=== PATIENT | female | born 1980 | race Caucasian/White ===

== ENCOUNTER 2017-12-18 16:44 | Inpatient (IN) | payer OTHER ==
--- OUTSIDE RECORDS SUMMARY | 2017-12-18 17:05 | XMS REPORT ---
:1980 External Reference #:[id number] Author Organization [facility] [employer] Address [address] [address] Phone [phone] Care Team Providers Name Role Phone Irma Arredondo MD Primary Care Physician Unavailable Payers Type Date Identification Numbers Payment Provider Subscriber Commercial Effective: Policy Number: [id number] [employer] Suzanna Moser 2011 PayID: [id number] [address] [place] [address] Medigap Part B Expires: Policy Number: [employer] Insurance Suzanna Moser 2011 [id number] PayID: [id number] [address] [place] [address] Problems Date Description Provider Status Onset: 12/06/2011 Contact dermatitis Delfina Lua M.D. Active Onset: 12/12/2016 Ileostomy present Irma Arredondo M.D. Active Onset: 12/12/2016 Crohn's disease Irma Arredondo M.D. Active Onset: 12/12/2016 Human papilloma virus infection Irma Arredondo M.D. 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 affected area for 1 week then prn Imitrex 09/02/ Active Tablets 100mg 7tabs 1 tab at G43.901 Irma 2014 onset of aquino Arredondo, and december.D. repeat in 2 hr. max 200mg per 24hr Remicade 03/19/ Active Solution 100mg infusion Ligia, 2012 Rec every 8-10 MD Pritesh weeks Qnasl / Active Aerosol 80mcg/Act 8.700 2 Unknown 0000 gm inhalations in each nostril once daily prn Ventolin HFA / Active Aerosol 108(90Base 1unit 2 puffs po Unknown 0000 ) mcg/Act s qid prn Olopatadine / Active Solution 0.6% instill 1 Unknown HCL 0000 spray into each nostril every evening prn Zyrtec Allergy / Active Tablets 10mg 1 by mouth Unknown 0000 every day as needed for allergies Apri / Active Tablets 0.15-30mg- 28tab 1 by mouth Irma 0000 mcg s every day Beni Arredondo Multi Vitamin 00/ Active Tablets 1 by mouth Unknown Daily 0000 every day Zinc / Active Tablets 50mg 0nce daily Unknown 0000 Vitamin C / Active Capsules 1 by mouth Unknown 0000 every day Azithromycin 01/18/ Hx Tablets 250mg 6tabs 2 tab by Delfina 2016 - mouth day 1 Stoney 12/12/ then 1 tab M.D. 2016 by mouth day 2-5 Keflex 10/26/ Hx Capsules 250mg 30cap 1 tab by Delfina 2016 - s mouth every Stoney, 11/21/ 8 hours M.D. 2015 Clotrimazole/B 07/31/ Hx Cream 1-0.05% 30gm apply twice 691.8 Delfina etamethasone 2011 - daily as Stoney Dipropionate 12/12/ needed M.D. 2016 Gentamicin 08/23/ Hx Ointment 0.1% 1tube /14 in to 692.9 Delfina Sulfate 2011 - each eye 4x Stoney 07/31/ per day 7 M.D. 2011 days Erythromycin 04/12/ Hx Ointment 5mg/GM 1tube apply to lt 373.00 Delfina 2011 - eye 08/15 in Lua, 07/31/ 3x per day M.D. 2011 7-10 days Cipro 04/12/ Hx Tablets 250mg 20tab one by nura 373.00 Delfina 2010 - s twice daily Lua, for 10 days M.D. 2010 Remicade / Hx Solution 300mg q 8 weeks Unknown 0000 - Rec 2015 Cephalexin / Hx Capsules 250mg 30cap take 1 692.9 Unknown 0000 - s capsule by 07/31/ mouth three 2012 times a day for 10 days Hydroxyzine / Hx Tablets 25mg Unknown HCL 0000 - 2016 Immunizations CPT Code Status Date Vaccine Reaction Lot # [id number] Given 12/16/2017 Pneumonia Vaccine [id number] Given 12/12/2016 Tdap - Tetanus/Diptheria/Acellular [id number] Pertussis Q2037 Given 08/09/2015 Fluvirin Im 3Yrs And Older Q2037 Given 05/03/2014 Fluvirin Im 3Yrs And Older [facility] Q2037 Given 08/27/2013 Fluvirin Im 3Yrs And Older [id number] Given 04/24/2011 Influenza Virus 3Yrs & Over [id number] Vital Signs Date Vital Result Comment 12/16/2017 Height 61.4 inches 5'1.40" Weight 134.00 lb Heart Rate 67 /min BP Systolic Sitting 138 mmHg BP Diastolic Sitting 80 mmHg O2 % BldC Oximetry 98 % BMI (Body Mass Index) 25.0 kg/m2 12/12/2016 Height 61 inches 5'1" Weight 133.00 lb Heart Rate 92 /min BP Systolic Sitting 126 mmHg BP Diastolic Sitting 80 mmHg Respiratory Rate 15 /min Body Temperature 98.0 F O2 % BldC Oximetry 98 % BMI (Body Mass Index) 25.1 kg/m2 01/03/2016 Weight 130.00 lb Heart Rate 95 /min BP Systolic Sitting 108 mmHg BP Diastolic Sitting 70 mmHg Body Temperature 98.3 F O2 % BldC Oximetry 99 % 11/22/2015 Height 61 inches 5'1" Weight 131.00 lb Heart Rate 102 /min BP Systolic Sitting 144 mmHg BP Diastolic Sitting 83 mmHg Body Temperature 98.5 F BMI (Body Mass Index) 24.7 kg/m2 09/02/2014 Height 61 inches 5'1" Weight 131.00 lb Heart Rate 95 /min BP Systolic Sitting 138 mmHg BP Diastolic Sitting 64 mmHg O2 % BldC Oximetry 97 % BMI (Body Mass Index) 24.7 kg/m2 08/27/2013 Height 61 inches 5'1" Weight 124.00 lb Heart Rate 73 /min BP Systolic Sitting 116 mmHg BP Diastolic Sitting 68 mmHg O2 % BldC Oximetry 99 % BMI (Body Mass Index) 23.4 kg/m2 07/31/2012 Height 62 inches 5'2" Weight 124.00 lb Heart Rate 78 /min BP Systolic Sitting 124 mmHg BP Diastolic Sitting 80 mmHg BMI (Body Mass Index) 22.7 kg/m2 08/23/2011 Height 62 inches 5'2" Weight 124.00 lb Heart Rate 80 /min BP Systolic Sitting 140 mmHg l BP Diastolic Sitting 82 mmHg l BMI (Body Mass Index) 22.7 kg/m2 04/24/2011 Weight 125.00 lb Heart Rate 72 /min BP Systolic Sitting 118 mmHg BP Diastolic Sitting 80 mmHg 04/12/2011 Height 61 inches 5'1" Weight 127.00 lb Heart Rate 74 /min BP Systolic Sitting 110 mmHg BP Diastolic Sitting 74 mmHg BMI (Body Mass Index) 24.0 kg/m2 Results Test Date Test Result H/L Range Note Laboratory test finding 12/16/2017 Cytology <pending> Lipid Profile 12/10/2017 Triglycerides 129 mg/dL 1 (Trig/Chol/HDL) Cholesterol 171 mg/dL 2 HDL Cholesterol 73.2 mg/dL 3 LDL Cholesterol 72 mg/dL 4 Laboratory test finding 12/10/2017 Glucose 80 mg/dL 70-100 5 Laboratory test finding 12/12/2016 Cytology SEE RESULT BELOW 6 HPV Rna Ww/Reflex Genotype Negative Negative 7 Lipid Profile (Trig/Chol/HDL) 11/30/2016 Triglycerides 130 mg/dL 8 Cholesterol 156 mg/dL 9 HDL Cholesterol 72.9 mg/dL 10 LDL Cholesterol 57 mg/dL 11 CBC Auto Diff 11/30/2016 White Blood Count 9.1 10^3/uL 3.5-10.8 Red Blood Count 4.62 10^6/uL 4.0-5.4 Hemoglobin 13.7 g/dL 12.0-16.0 Hematocrit 41 % 35-47 Mean Corpuscular Volume 88 fL 80-97 Mean Corpuscular Hemoglobin 30 pg 27-31 Mean Corpuscular HGB Conc 34 g/dL 31-36 Red Cell Distribution Width 13 % 10.5-15 Platelet Count 346 10^3/uL 150-450 Mean Platelet Volume 8 um3 7.4-10.4 Abs Neutrophils 4.6 10^3/uL 1.5-7.7 Abs Lymphocytes 3.4 10^3/uL 1.0-4.8 Abs Monocytes 0.9 10^3/uL High 0-0.8 Abs Eosinophils 0.1 10^3/uL 0-0.6 Abs Basophils 0 10^3/uL 0-0.2 Abs Nucleated RBC 0.01 10^3/uL Granulocyte % 51.0 % 38-83 Lymphocyte % 37.0 % 25-47 Monocyte % 10.3 % High 1-9 Eosinophil % 1.4 % 0-6 Basophil % 0.3 % 0-2 Nucleated Red Blood Cells % 0.1 Comp Metabolic Panel 11/30/2016 Sodium 135 mmol/L 133-145 Potassium 4.2 mmol/L 3.5-5.0 Chloride 102 mmol/L 101-111 Co2 Carbon Dioxide 27 mmol/L 22-32 Anion Gap 6 mmol/L 2-11 Glucose 79 mg/dL 70-100 Blood Urea Nitrogen 11 mg/dL 6-24 Creatinine 0.78 mg/dL 0.51-0.95 BUN/Creatinine Ratio 14.1 8-20 Calcium 9.4 mg/dL 8.6-10.3 Total Protein 7.3 g/dL 6.4-8.9 Albumin 4.0 g/dL 3.2-5.2 Globulin 3.3 g/dL 2-4 Albumin/Globulin Ratio 1.2 1-3 Total Bilirubin 0.30 mg/dL 0.2-1.0 Alkaline Phosphatase 63 U/L 34-104 Alt 8 U/L 7-52 Ast 15 U/L 13-39 Egfr Non- 82.7 >60 Egfr 106.3 >60 12 Laboratory test finding 01/03/2016 Culture Throat SEE RESULT BELOW 13 Laboratory test finding 01/03/2016 Rapid Group A Strep neg Lipid Profile (Trig/Chol/HDL) 11/15/2015 Triglycerides 115 mg/dL 14 Cholesterol 174 mg/dL 15 HDL Cholesterol 78.4 mg/dL 16 LDL Cholesterol 73 mg/dL 17 Laboratory test 11/15/2015 Glucose 69 mg/dL Low 70-100 finding Laboratory test 09/02/2014 Cytology RUN DATE: 18 finding 09/03/ <SEE NOTE> Laboratory test 09/02/2014 Human Papilloma Virus Positive Negative 19 finding Rna Lipid Profile 08/24/2014 Triglycerides 99 mg/dL 20, 21 (Trig/Chol/HDL) Cholesterol 175 mg/dL 20, 22 HDL Cholesterol 75.5 mg/dL 20, 23 LDL Cholesterol 80 mg/dL 20, 24 Laboratory test 08/24/2014 Glucose 82 mg/dL 70-100 20, 25 finding Surgical Pathology 02/18/2014 S RUN DATE: 26 02/19/ <SEE NOTE> Laboratory test 08/27/2013 Cytology RUN DATE: 27 finding 08/28/ <SEE NOTE> Laboratory test 08/27/2013 Affirm Vaginal Dna (SEE NOTE) 28 finding Probe Lipid Profile 08/20/2013 Triglycerides 109 mg/dL 40-200 (Trig/Chol/HDL) Cholesterol 187 mg/dL Less than 200 HDL Cholesterol 99 mg/dL High 40-60 29 Cholesterol/HDL Ratio 1.9 Average 1-4.44 LDL Cholesterol 66.2 Less Than 100 30 Laboratory test finding 08/20/2013 Glucose 74 mg/dL 70-100 31 Laboratory test finding 07/31/2012 Cytology RUN DATE: <SEE NOTE> Laboratory test finding 07/02/2012 Glucose 77 mg/dL 70-100 33 Lipid Profile 07/02/2012 Triglycerides 88 mg/dL 40-200 (Trig/Chol/HDL) Cholesterol 188 mg/dL Less than 200 HDL Cholesterol 85 mg/dL High 40-60 34 Cholesterol/HDL Ratio 2.2 AVERAGE 1-4.44 LDL Cholesterol 85.4 mg/dL Less Than 100 35 Surgical Pathology 06/28/2011 Surgical Pathology <SEE 36 NOTE> Laboratory test 04/24/2011 Cytology <SEE 37 finding NOTE> Chlamydia Trachomatis Rna N 38 GC (N. Gonorrhoeae) Rna N 39 Bacterial Vaginosis Smear Bacterial Vagino <SEE NOTE> 40 Lipid Profile (Trig/Chol/HDL) 04/02/2011 Triglyceride 105 mg/dL 40-200 Cholesterol 177 mg/dL Less Than 200 41 High Density Lipoprotein 67 mg/dL High 40-60 42 Cholesterol/HDL Ratio 2.64 AVERAGE 1-4.44 Low Density Lipoprotein 89 mg/dL Less Than 100 43 Laboratory test finding 04/02/2011 Glucose 76 mg/dL 70-100 1 Desirable: <150 Borderline High: 150-199 High: 200-499 Very High: >500 2 Desirable: <200 Borderline High: 200-239 High: >239 3 Low: <40 Desirable: 40-60 High: >60 4 Desirable: <100 Near Optimal: 100-129 Borderline High: 130-159 High: 160-189 Very High: >189 5 FASTING 10 HOUR 6 SEE RESULT BELOW Name: SUZANNA MOSER : [address]: Irma Arredondo MD Acct: [id number] Unit: [id number] AGE: 36 Location: [facility] Re12/12/16 SEX: F Status: REG REF SPEC: [id number] MO: 12/12/16-[address]: Irma Arredondo MD REQ: [id number] RECD: 12/12/16 STATUS: SOUT _ ORDERED: TP IMAGE ANAL, HPV/Thin Prep, HPV 16/18 GENE COMMENTS: [id number] FINAL DIAGNOSIS Negative for Intraepithelial lesion or Malignancy Reactive cellular changes associated with Inflammation (includes typical repair) A. Ectocervical/Endocervical Specimen Adequacy: Satisfactory of evaluation Transformation zone component identified Patient Information: HPV: High risk HPV RNA testing regardless of pap results. Actual Specimen Date: 12/12/16 Last Menstrual Date: 11/21/16 Previous Abnormal Pap Smears?:N If Yes, enter Diagnosis: HPV+ Date Time Test Result Flag (u) Normal Range 12/12/16 1513 HPV RNA RFLX GE Negative Negative The high-risk HPV types detected by the assay include: 16, 18, 31, 33, 35, 39, 45, 51, 52, 56, 58, 59, 66, and 68. Signed (signature on file) Michaela Seymour MD 12/26 1923 This Pap test was evaluated with the assistance of the [employer] Test Imaging System. Due to cytologic findings at the customer logistics manager microscope, comprehensive manual rescreening by a Video Production Specialist may be required. The Pap Smear is a screening test designed to aid in the detection of premalignant and malignant conditions of the uterine cervix. It is not a diagnostic procedure and should not be used as the sole means of detecting cervical cancer. Both false- positive and false- negative reports do occur. Depending on your risk status, a Pap smear should be obtained and evaluated every 1-3 years. END OF REPORT * ML=Testing performed at Main Lab DEPARTMENT OF PATHOLOGY, [address] [place] [address] Zeke [place] M.D. Director [facility] # [id number] The high-risk HPV types detected by the assay include: 16, 18, 31, 33, 35, 39, 45, 51, 52, 56, 58, 59, 66, and 68. 8 Desirable <150 Borderline high 150-199 High 200-499 Very High >500 9 Desirable <200 Borderline high 200-239 High >239 10 Low <40 Desirable: 40-60 High: >60 11 Desirable: <100 mg/dL Near Optimal: 100-129 mg/dL Borderline High: 130-159 mg/dL High: 160-189 mg/dL Very High: >189 mg/dL 12 Because ethnic data is not always readily available, this report includes an eGFR for both -Americans and non- Americans. The National Kidney Disease Education Program (NKDEP) does not endorse the use of the MDRD equation for patients that are not between the ages of 18 and 70, are , have extremes of body size, muscle mass, or nutritional status, or are non- or non-. According to the National Kidney Foundation, irrespective of diagnosis, the stage of the disease is based on the level of kidney function: Stage Description GFR(mL/min/1.73 m(2)) 1 Kidney damage with normal or decreased GFR 90 2 Kidney damage with mild decrease in GFR 60-89 3 Moderate decrease in GFR 30-59 4 Severe decrease in GFR 15-29 5 Kidney failure <15 (or dialysis) 13 SEE RESULT BELOW Name: SUZANNA MOSER : [address]: Delfina Lua MD Acct: [id number] Unit: [id number] AGE: 35 Location: [facility] Re01/03/16 SEX: F Status: REG REF SPEC: [id number] MO: 01/03/16-[address]: Delfina Lua MD REQ: [id number] RECD: 01/03/16 STATUS: COMP _ SOURCE: THROAT SPDESC: ORDERED: Throat Culture COMMENTS: [id number] Procedure Result Reported Site Throat Culture Final 01/05/16- 1250 ML Organism 1 NORMAL BLAKE Quantity 3+ Throat cultures are clinically indicated to detect the presence of group A strep, arcanobacterium and yeast. In certain cases, predominating organisms will be reported. * ML - MAIN LAB ([facility]) . END OF REPORT * ML=Testing performed at Main Lab DEPARTMENT OF PATHOLOGY, [address] [place] [address] Zeke [place] M.D. Director [facility] # [id number] Desirable <150 Borderline high 150-199 High 200-499 Very High >500 15 Desirable <200 Borderline high 200-239 High >239 16 Low <40 Desirable: 40-60 High: >60 17 Desirable: <100 mg/dL Near Optimal: 100-129 mg/dL Borderline High: 130-159 mg/dL High: 160-189 mg/dL Very High: >189 mg/dL 18 RUN DATE: 09/03/14 [facility] LAB LIVE PAGE 1 RUN TIME: [address] [place] [address] Specimen Inquiry Name: SUZANNA MOSER : [address]: Delfina Lua MD Acct: [id number] Unit: [id number] AGE: 34 Location: [facility] Re09/02/14 SEX: F Status: REG REF SPEC: [id number] MO: 09/02/14-0938 [facility] DR: Delfina Lua MD REQ: [id number] RECD: 09/02/14 STATUS: SOUT _ ORDERED: IMAGE ANALYSIS, HPV/Thin Prep FINAL DIAGNOSIS Negative for Intraepithelial lesion or Malignancy A. Ectocervical/Endocervical Specimen Adequacy: Satisfactory of evaluation Transformation zone component identified Patient Information: HPV: High risk HPV RNA testing regardless of pap results. Actual Specimen Date: 09/02/14 Other Pertinent History: No History Given Date Time Test Result Flag (u) Normal Range 09/02/14 0938 HPV RNA Positive H Negative The high-risk HPV types detected by the assay include: 16, 18, 31, 33, 35, 39, 45, 51, 52, 56, 58, 59, 66, and 68. Signed (signature on file) JOSE A Hawkins(ASCP) 6124 This Pap test was evaluated with the assistance of the ThinPrep Test Imaging System. Due to cytologic findings at the customer logistics manager microscope, comprehensive manual rescreening by a Video Production Specialist may be required. The Pap Smear is a screening test designed to aid in the detection of premalignant and malignant conditions of the uterine cervix. It is not a diagnostic procedure and should not be used as the sole means of detecting cervical cancer. Both false- positive and false- negative reports do occur. Depending on your risk status, a Pap smear should be obtained and evaluated every 1-3 years. END OF REPORT * ML=Testing performed at Main Lab DEPARTMENT OF PATHOLOGY, [facility] [address] [place], [place] [address] Zeke Montgomery M.D. Director [facility] # [id number] 19 The high-risk HPV types detected by the assay include: 16, 18, 31, 33, 35, 39, 45, 51, 52, 56, 58, 59, 66, and 68. 20 FASTING 12 HOUR 21 Desirable <150 Borderline high 150-199 High 200-499 Very High >500 22 Desirable <200 Borderline high 200-239 High >239 23 Low <40 Desirable: 40-60 High: >60 24 Desirable <100 Near Optimal 100-129 Borderline high 130-159 High 160-189 Very High >189 25 FASTING 12 HOUR 26 RUN DATE: 02/19/14 [facility] LAB LIVE PAGE 1 RUN TIME: 4309 [facility] [place], [place] [address] Specimen Inquiry Name: SUZANNA MOSER : [address]: Pritesh Strong MD Acct: [id number] Unit: [id number] AGE: 34 Location: ENDO Re02/18/14 SEX: F Status: REG REF SPEC: [id number] MO: 02/18/14-[address]: Pritesh Strong MD REQ: [id number] RECD: 02/18/14 STATUS: KASHIF MORA DR: Delfina Lua MD _ ORDERED: LEVEL IV/2 FINAL DIAGNOSIS 1. Colon, at 20 cm., biopsies: A. Chronic focally active colitis. B. No evidence of dysplasia. 2. Colon, at 10 cm., biopsies: A. Chronic focally active colitis. B. No evidence of dysplasia. COMMENTS: Histologic sections from both specimens show colonic mucosa with mild crypt architecture distortion and an increase in lamina propria infiltrate cellularity. Focally acute cryptitis is present. No granulomata are seen. There is no evidence of dysplasia. The findings are compatible with an inflammatory bowel disease such as Crohn's disease or ulcerative colitis. Clinicopathologic correlation is recommended. CLINICAL HISTORY Screening colonoscopy - Crohn's disease, last flex sigmoidoscopy 2010 POST-OPERATIVE DIAGNOSIS Screening colonoscopy to 20 cm. - biopsy at 10 cm. and 20 cm. CONTINUED ON NEXT PAGE * ML=Testing performed at Main Lab DEPARTMENT OF PATHOLOGY, [facility] [address] [place], [place] [address] Zeke [place] M.D. Director [facility] # [id number] RUN DATE: 02/19/14 [facility] LAB LIVE PAGE 2 RUN TIME: [address] [place] [address] Specimen Inquiry Patient: SUZANNA MOSER [id number] (Continued) GROSS DESCRIPTION (Continued) GROSS DESCRIPTION 1. The specimen is received in formalin labeled Suzanna NinaSteffi Ehsan, Colon Biopsies at 20 cm. and consists of a 0.6 x 0.5 x 0.2 cm. aggregate of multiple carpenter irregular soft tissue fragments. Submitted entirely, one cassette. 2. The specimen is received in formalin labeled Suzanna MaicoSteffi Ehsan, Colon Biopsies at 10 cm. and consists of a 0.7 x 0.6 x 0.2 cm. aggregate of multiple carpenter-pink irregular soft tissue fragments. Submitted entirely, one cassette. Signed (signature on file) Michaela Seymour MD 06/25 1447 END OF REPORT * ML=Testing performed at Main Lab DEPARTMENT OF PATHOLOGY, [address] [place] [address] Zeke [place] M.D. Director [facility] # [id number] 27 RUN DATE: 08/28/13 [facility] LAB LIVE PAGE 1 RUN TIME: 12[address] [place], [place] [address] Specimen Inquiry Name: SUZANNA MOSER : [address]: Delfina Lua MD Acct: [id number] Unit: [id number] AGE: 33 Location: [facility] Re08/27/13 SEX: F Status: REG REF SPEC: [id number] MO: 08/27/13-1434 [facility] DR: Delfina Lua MD REQ: [id number] RECD: 08/27/13 STATUS: SOUT _ ORDERED: IMAGE ANALYSIS FINAL DIAGNOSIS Negative for Intraepithelial lesion or Malignancy A. Ectocervical/Endocervical Specimen Adequacy: Satisfactory of evaluation Transformation zone component identified Patient Information: HPV: Thin Layer Pap Test w/reflex to high risk HPV DNA testing when ASCUS Actual Specimen Date: 08/27/13 Last Menstrual Date: 08/24/13 Cautery: N IUD: N Lesion, grossly demonstrate: N ?: N Post Menopausal?: N Hysterectomy?: N Previous Abnormal Pap Smears?:N Signed (signature on file) JOSE A Otero (ASC) 08/28/13 1221 This Pap test was evaluated with the assistance of the [employer] Test Imaging System. Due to cytologic findings at the customer logistics manager microscope, comprehensive manual rescreening by a Video Production Specialist may be required. The Pap Smear is a screening test designed to aid in the detection of premalignant and malignant conditions of the uterine cervix. It is not a diagnostic procedure and should not be used as the sole means of detecting cervical cancer. Both false- positive and false- negative reports do occur. Depending on your risk status, a Pap smear shoudl be obtained and evaluated every 1-3 years. END OF REPORT * ML=Testing performed at Main Lab DEPARTMENT OF PATHOLOGY, [facility] [place] [place] [address] Zeke [place] M.D. Director [facility] Permit #[id number] RUN DATE: 08/28/13 [facility] LAB LIVE PAGE 1 RUN TIME: 1140 [facility] [place], [place] [address] Specimen Inquiry Name: SUZANNA MOSER : [address]: Delfina Lua MD Acct: [id number] Unit: [id number] AGE: 33 Location: [facility] Re08/27/13 SEX: F Status: REG REF SPEC: [id number] MO: 08/27/13-[address]: Delfina Lua MD REQ: [id number] RECD: 08/27/13 STATUS: COMP _ SOURCE: VAGINAL SPDESC: ORDERED: Affirm QUERIES: Medent Number [id number] Procedure Result Verified Site Affirm Vaginal DNA Probe Final 08/28/13- 1140 ML Organism 1 Negative Trichomonas Organism 2 Negative Gardnerella Organism 3 Negative Yisel The presence of G. vaginalis, although suggestive, is not diagnostic for bacterial vaginosis. Results should be interpreted in conjunction with other clinical and laboratory data available. Women with vaginal discharge should be evaluated for risk factors of cervicitis and pelvic inflammatory disease, toxic shock syndrome (S.aureus), and if present, evaluated for organisms not included in this assay such as N. gonorrhoeae, C. trachomatis, Mobiluncus, Mycoplasma and/or Prevotella. Mixed infections may occur. The performance of this test on patient specimens collected during or immediately after antimicrobial therapy is unknown. The presence or absence of Yisel species, G. vaginalis or T. vaginalis cannot be used as a test for therapeutic success or failure. END OF REPORT * ML=Testing performed at Main Lab DEPARTMENT OF PATHOLOGY, [facility] [place] [address] Zeke [place] M.D. Director [facility] Permit #[id number] 29 HDL Interpretation: Undesirable: High Risk: Less than 40 mg/dL Desirable: Low Risk: Greater than 60 mg/dL 30 LDL Interpretation: Low Risk Optimal Level: LDL Less than 100 mg/dL Near or Above Optimal: LDL 100-129 mg/dL Borderline High Risk: LDL 130-159 mg/dL High Risk: LDL 160-189 mg/dL Very High Risk: LDL Greater than 189 mg/dL 31 FASTING 32 RUN DATE: 08/01/12 [facility] LAB LIVE PAGE 1 RUN TIME: 1227 [facility] [place], [place] [address] Specimen Inquiry Name: SUZANNA MOSER : [address]: Delfina Lua MD Acct: [id number] Unit: [id number] AGE: 32 Location: [facility] Re07/31/12 SEX: F Status: REG REF SPEC: [id number] MO: 07/31/12-1049 [facility] DR: Stoney BATES, Delfina JanessaSteffi REQ: [id number] RECD: 08/01/12 STATUS: SOUT _ ORDERED: IMAGE ANALYSIS Negative for Intraepithelial lesion or Malignancy A. Ectocervical/Endocervical Specimen Adequacy: Satisfactory of evaluation Transformation zone component identified No menstrual history given Patient Information: HPV: Thin Layer Pap Test w/reflex to high risk HPV DNA testing when ASCUS Actual Specimen Date: 07/31/12 LMP If Unknown: Last Menstrual Period Not Given. Lesion, grossly demonstrate: N Previous Abnormal Pap Smears?:N Signed (signature on file) JOSE A Otero (ASCP) 08/01/12 1227 This Pap test was evaluated with the assistance of the [employer]Prep Test Imaging System. Due to cytologic findings at the customer logistics manager microscope, comprehensive manual rescreening by a Video Production Specialist may be required. The Pap Smear is a screening test designed to aid in the detection of premalignant and malignant conditions of the uterine cervix. It is not a diagnostic procedure and should not be used as the sole means of detecting cervical cancer. Both false- positive and false- negative reports do occur. Depending on your risk status, a Pap smear shoudl be obtained and evaluated every 1-3 years. END OF REPORT * ML=Testing performed at Main Lab DEPARTMENT OF PATHOLOGY, [address] [place] [address] Zeke Montgomery M.D. Director [facility] Permit #[id number] FASTING 34 HDL Interpretation: Undesirable: High Risk: Less than 40 MG/DL Desirable: Low Risk: Greater than 60 MG/DL 35 LDL Interpretation: Low Risk Optimal Level: LDL Less than 100 MG/DL Near or Above Optimal: LDL 100-129 MG/DL Borderline High Risk: LDL 130-159 MG/DL High Risk: LDL 160-189 MG/DL Very High Risk: LDL Greater than 189 MG/DL 36 ---- RUN DATE: 06/29/11 [facility] NMI LIVE PAGE 1 RUN TIME: 1303 Specimen Inquiry RUN USER: INTERFACE -- Name: SUZANNA MOSER Status: REG REF Re06/28/11 Age/Sex: 31/F Unit#: [id number] Location: [place] : 78 -- Specimen: [id number] SOUT Spec Date: 06/28/[address]: Pritesh dominguez MD Spec Type: SURGICAL P Received: 06/28/11-1224 Copies to: Delfina posadas MD SPECIMEN 1) BIOPSY COLON AT 20 CM 2) BIOPSY COLON AT 10 CM 3) BIOPSY RECTUM HISTORY POST-OP DIAGNOSIS: Biopsies. CLINICAL INFORMATION: Crohn's disease. GROSS DESCRIPTION 1) The specimen is received in formalin labelled Suzanna Monroe, Biopsy Colon at 20 cm., and consists of two fragments of yellow tissue measuring in aggregate 0.4 x 0.4 x 0.2 cm. Submitted entirely, one cassette labelled 1. 2) The specimen is received in formalin labelled Suzanna Monroe, Biopsy Colon at 10 cm., and consists of one fragment of yellow tissue measuring 0.4 x 0.1 x 0.1 cm. Submitted entirely, one cassette labelled 2. 3) The specimen is received in formalin labelled Suzanna Ehsan, Biopsy Rectum, and consists of two fragments of yellow tissue each measuring 0.3 x 0.1 x 0.1 cm. Submitted entirely, one cassette labelled 3. DIAGNOSIS 1) Colon at 20 cm., biopsy: A. Chronic active colitis with focal surface ulceration and acute cryptitis. B. Granulomas are not seen. 2) Colon at 10 cm., biopsy: A. Chronic active colitis with acute cryptitis and marked reactive changes. B. Granulomas are not seen. 3) Rectum, biopsy: A. Chronic active colitis with acute cryptitis and reactive changes. B. One poorly formed granulomas seen (see comment). -- DEPARTMENT OF PATHOLOGY, [address] [place] [address] [facility] Permit #[id number] Zeke Montgomery M.D. Director Babita Nichols M.D. [employer] Aide Dir rosio -- -- RUN DATE: 06/29/11 [facility] NMI LIVE PAGE 2 RUN TIME: 1303 Specimen Inquiry RUN USER: INTERFACE -- Name: SUZANNA MOSER Status: REG REF Re06/28/11 Age/Sex: 31/F Unit#: [id number] Location: [facility] : 78 -- -- CONTINUED -- COMMENT The paucity of granulomas dose not exclude the diagnosis of Crohn's disease. The inflammatory infiltrate is dense and extends into the muscularis mucosa and submucosa, supporting the diagnosis of Crohn's disease. Signed Electronically by: BABITA NICHOLS 06/29/11 0911 -- -- DEPARTMENT OF PATHOLOGY, [address] [place] [address] [facility] Permit #[id number] Beni Ervin M.D. [employer] Aide Dir rosio -- 35 ---- RUN DATE: 04/25/11 [facility] NMI LIVE PAGE 1 RUN TIME: 1116 Specimen Inquiry RUN USER: INTERFACE -- Name: SUZANNA MOSER Status: REG REF Re04/24/11 Age/Sex: 31/F Unit#: [id number] Location: [facility] : 78 -- Specimen: [id number] [facility] Spec Date: 04/24/[address] [facility] [address]: Delfina marquez MD Spec Type: CYTOLOGY Received: 04/25/1119 Copies to: SOURCE ECTOCERVICAL/ENDOCERVICAL Thin Prep with Reflex HPV Test PATIENT INFORMATION ACTUAL COLLECTION DATE: 04/24/11 PREVIOUS ABNORMAL PAP SMEARS No PATIENT HISTORY: Last menstrual period 3 wks ago ADEQUACY OF SPECIMEN Satisfactory for evaluation * Transformation zone component identified * DIAGNOSIS NEGATIVE FOR INTRAEPITHELIAL LESION OR MALIGNANCY * This Pap test was evaluated with the assistance of the Jobv[employer] Pap Test Imaging System. The Pap Smear is a screening test designed to aid in the detection of premalign ant and malignant conditions of the uterine cervix. It is not a diagnostic procedure a nd should not be used as the sole means of detecting cervical cancer. Both false- positiv e and false-negative reports do occur. Depending on your risk status, a Pap smear adrianne uld be obtained and evaluated every one to three years. Initial evaluation performed by Layla ALVARADO(ASCP) 04/25/11 Final Interpretation electronically signed by: Layla ALVARADO CT([facility]) 04/25/11 1114 -- -- DEPARTMENT OF PATHOLOGY, [address] [place] [address] [facility] Permit #[id number] Beni Ervin M.D. [employer] Aide Dir rosio -- 38 NEGATIVE FOR CHLAMYDIA TRACHOMATIS rRNA A negative result does not preclude the presence of a C.trachomatis or N.gonorrhoeae infection because results are dependent on adequate specimen collection, absence of inhibitors, and sufficient rRNA to be detected. Test results may be affected by improper specimen collection, improper specimen storage, technical error, or specimen mixup. 39 NEGATIVE FOR NEISSERIA GONORRHOEAE rRNA A negative result does not preclude the presence of a C.trachomatis or N.gonorrhoeae infection because results are dependent on adequate specimen collection, absence of inhibitors, and sufficient rRNA to be detected. Test results may be affected by improper specimen collection, improper specimen storage, technical error, or specimen mixup. 40 Bacterial Vaginosis Not Likely None Many None 41 CHOLESTEROL INTERPRETATION: Desirable: Less than 200 MG/DL Borderline-High Risk: 200-239 MG/DL High-Risk: 240 MG/DL and over 42 HDL INTERPRETATION: Undesirable: High Risk: Less than 40 MG/DL Desirable: Low Risk: Greater than 60 MG/DL 43 LDL INTERPRETATION: Low Risk Optimal Level: LDL Less than 100 MG/DL Near or Above Optimal: LDL 100-129 MG/DL Borderline High Risk: LDL 130-159 MG/DL High Risk: LDL 160-189 MG/DL Very High Risk: LDL Greater than 189 MG/DL Procedures Date CPT Code Description Status 08/12/2014 Diabetic Retinal Eye Exam Completed 02/18/2014 Colonoscopy Completed Encounters Type Date Location Provider CPT E/M Dx Office Visit 12/12/2016 [facility] Irma Arredondo M.D. 82983 Z00.00 2:20p - [place] Z12.4 Z23 Office Visit 01/03/2016 11:40a [facility] Delfina Lua M.D. 86274 J02.9 - [place] Office Visit 11/22/2015 2:00p [facility] Delfina Lua M.D. 03566 Z00.00 - [place] Z12.39 K50.00 G43.901 Office Visit 09/02/2014 9:00a [facility] Delfina Lua M.D. 20205 V76.2 - [place] V76.19 V70.0 346.92 300.02 V72.31 346.90 Office Visit 08/27/2013 2:00p [facility] Delfina Lua M.D. 54241 V70.0 - [place] V76.19 V76.2 300.02 V04.81 Office Visit 07/31/2012 10:00a [facility] Delfina Lua M.D. 52815 V76.2 - [place] V76.19 691.8 477.9 V70.0 Office Visit 08/23/2011 11:40a [facility] Delfina Lua M.D. 45900 692.9 - [place] Office Visit 04/24/2011 1:00p DO Not Use Manager Forensic At Delfina Lua M.D. 30636 V76.2 Ub[place] V76.10 V04.81 Office Visit 04/12/2011 2:00p DO Not Use Manager Forensic At Delfina Lua M.D. 59775 373.00 Ubiregi V70.0 V76.2 Plan of Care 12/16/2017 - Irma Arredondo M.D.Z00.00 Encntr for general adult medical exam w/ o abnormal findingsComments:reviewed online questionnaire which reveals no diabetes, cholesterol profile is great !, normal BMI , Lamont glad you have a healthy exercise routine and no evidence of anxiety /depression and stress levels are low You received the pneumonia vaccine [id number] Encounter for screening for malignant neoplasm of [id number] Encounter for immunization
[2017-12-18] MEDS ORDERED: Acetaminophen TAB* 325 MG PO ONE (17:57)
[2017-12-18] MEDS: NS 0.9% 1000 ML* 2,000 ML IV ONE (18:23)
[2017-12-18 18:28] LABS: Hematocrit 37 % (35-47); Hemoglobin 12.3 g/dl (12.0-16.0); Mean Corpuscular HGB Conc 34 g/dl (31-36); Mean Corpuscular Hemoglobin 29 pg (27-31); Mean Corpuscular Volume 86 fL (80-97); Mean Platelet Volume 7.6 um3 (7.4-10.4); Platelet Count 269 10^3/ul (150-450); Red Blood Count 4.24 10^6/ul (4.0-5.4); Red Cell Distribution Width 12 % (10.5-15); White Blood Count 19.2 10^3/ul (3.5-10.8)
[2017-12-18 18:36] LABS: INR 1.37 (0.77-1.02)
--- NOTE | 2017-12-18 18:39 | RAD ---
Indication: Fever. Sepsis. Comparison: No relevant prior exams available on the [facility] PACS for comparison. Technique: Upright AP 1820 hours Report: Clear lungs and pleural spaces. Negative for pneumothorax. The heart, pulmonary vasculature, and mediastinal contours are unremarkable. Negative for free air beneath the diaphragm. Unremarkable osseous structures and soft tissue contours. IMPRESSION: No etiology for fever evident. No evidence for acute intrathoracic disease.
[2017-12-18 18:55] LABS: EGFR Non-African American 91.6 (>60)
[2017-12-18 18:59] LABS: ABS Basophils 0.1 10^3/ul (0-0.2); ABS Eosinophils 0 10^3/ul (0-0.6); ABS Lymphocytes 1.4 10^3/ul (1.0-4.8); ABS Monocytes 1.2 10^3/ul (0-0.8); ABS Neutrophils 16.5 10^3/ul (1.5-7.7); ABS Nucleated RBC 0 10^3/ul; Eosinophil % 0 % (0-6); Lymphocyte % 7.5 % (25-47); Nucleated Red Blood Cells % 0.1
[2017-12-18] MEDS ORDERED: Vancomycin(*) 1,000 MG in NS 0.9% 250 ML* 250 ML IVPB ONE (19:23)
[2017-12-18 20:30] LABS: Urine Appearance Clear; Urine Blood 3+ (Negative); Urine Color Straw; Urine Ketones Trace (Negative); Urine Protein Negative (Negative); Urine Specific Gravity 1.001 (1.010-1.030); Urine Urobilinogen Negative (Negative)
[2017-12-18] MEDS ORDERED: Docusate CAP* 100 MG PO PRN (20:44)
[2017-12-18] MEDS ORDERED: Acetaminophen TAB* 325 MG PO PRN (20:44)
[2017-12-18] MEDS ORDERED: Ondansetron 40 MG VIAL* 2 MG/ML 20 ML VIAL IV PRN (20:44)
[2017-12-18] MEDS ORDERED: Senna TAB PO PRN (20:44)
[2017-12-18] MEDS ORDERED: cefTRIAXone(*) 2 GM in NS 0.9% 100 ML* 100 ML IVPB ONE (20:44)
[2017-12-18] MEDS ORDERED: Al Hydrox/Mg Hydrox/Simet LIQ* 30 ML UDC PO PRN (20:44)
[2017-12-18] MEDS ORDERED: Lidocaine 2% EPI 1:200000 MPF*10-20 ML VIAL ONE (21:14)
[2017-12-18] MEDS ORDERED: Ketorolac INJ* 15 MG/ML 1 ML VIAL IV PUSH PRN (22:48)
--- NOTE | 2017-12-19 06:50 | HP ---
CC: Irma Arredondo MD * HISTORY AND PHYSICAL: DATE OF ADMISSION: 12/18/17 PRIMARY CARE PHYSICIAN: Irma Arredondo MD TIME OF EVALUATION: 1999 CHIEF COMPLAINT: Fever and headache. HISTORY OF PRESENT ILLNESS: This is a 37-year-old female with a past medical history of Crohn's disease status post ileostomy, on Remicade, who presented to the emergency after calling her primary care physician office for persistent fevers. The patient states she went to see her primary care physician. She got the Pneumovax vaccine on 12/16/17. That evening, she developed fevers, chills, and a frontal headache. Her temperature has been going off and on for the past 3 days. It is high as 104. She said she had nausea, vomiting yesterday. She has had decrease in appetite and decrease in output of her ostomy bag. She denies any abdominal pain. No urinary symptoms. No dysuria. No rashes noted. No URI symptoms. No sore throat. No sick contacts. No weight changes. No chest pain. She states she was anxious earlier and thought she was having some shortness of breath. She states her neck has been stiff as well, but she thinks it may be from lying around. She does have some pain in her knee joints bilaterally. In the emergency room, the patient had labs, imaging. She was given 2 L of normal saline, Tylenol, and vancomycin. Referred to the hospitalist service for further evaluation. PAST MEDICAL HISTORY: 1. Crohn's disease status post ileostomy, followed by Dr. Strong. 2. Seasonal allergies. MEDICATIONS: 1. Desogestrel and ethinyl 1 tab p.o. daily. 2. Beclomethasone dipropionate 80 mcg daily. 3. Remicade 300 mg IV every 8 weeks, is scheduled to get her Remicade this 12/20/17. 4. Debra 180 mg p.o. daily as needed. 5. Zyrtec 10 mg p.o. daily as needed. ALLERGIES: AMOXICILLIN develops rash. FAMILY HISTORY: Parents are alive and healthy. SOCIAL HISTORY: She lives at home with her . 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 Her , Manolo Dewey is her healthcare proxy. No history of smoking. Occasional alcohol. No illicit drug use. Code status is full code. REVIEW OF SYSTEMS: A 14-point review of systems as mentioned in the HPI. In addition, the patient did travel to [place] in late November. Otherwise negative. PHYSICAL EXAMINATION GENERAL: In no acute distress. Resting comfortably. VITAL SIGNS: T-max 103.9, pulse rate 105, respiratory rate 16, oxygen saturation 98% on room air, blood pressure 134/86. HEENT: Head: Normocephalic. Pupils are equal and reactive. Oropharynx: Mucous membranes are moist. NECK: She does have some adenopathy, more prominent on the right side. She does have some neck tenderness with flexion and frontal head tenderness as well concerning for a possibility of nuchal rigidity. RESPIRATORY: Clear to auscultation. No wheezing, rhonchi, or rales. CARDIAC: Tachycardia. No murmurs, rubs, or gallops. ABDOMEN: Positive bowel sounds. Soft, nontender, and nondistended. Ostomy is output of brown stool. EXTREMITIES: No clubbing, cyanosis, or edema. +2 DPs. NEUROLOGIC: Alert and oriented x3. No gross focal neurologic deficits. DERM: The patient with 3 to 4 cm erythematous patches on her left upper extremity. No tenderness, itching, or swelling. DIAGNOSTIC STUDIES/LAB DATA: White count 19.2, hemoglobin 12.3, hematocrit 37 , platelets 269. INR 1.37. Sodium 126, potassium 3.3, chloride 95, bicarb 20, BUN 6, creatinine 0.71, glucose 110. CRP 300. Beta hCG less than 6. Urinalysis shows +3 blood, +1 white cells, +3 leukocytes. RADIOGRAPHIC DATA: No etiology for fever. No evidence for acute intrathoracic disease. ASSESSMENT AND PLAN: This is a 37-year-old female with a past medical history of Crohn's, on Remicade, who presented to the emergency room after having 3 days of fever and headache in the setting of a recent Pneumovax vaccine on 12/16. 1. Fever and headache. Assessment: The patient is nontoxic appearing, although she has several laboratory derangements and a high temp. It is possible this is a reaction to her vaccine causing serum sickness; however, with her neck stiffness and headache, I think we need to rule out meningitis in an immunosuppressed patient. Plan: We will ask the emergency room to do a lumbar puncture. We will give her 2 g of ceftriaxone now and follow up LP results. For now, continue with IV fluids, pain control. Again, follow up on her cultures. She does have pyuria; however, she has no urinary symptoms and if she does have a UTI, her ceftriaxone will cover her. Consider Infectious Disease consultation in the morning. 2. Chronic medical problems. Crohn's disease. The patient is only on Remicade and no active flare-up at this time. Fluid, electrolytes, and nutrition. Place the patient on a regular diet. DVT prophylaxis. The patient scores low risk. We will encourage ambulation. Code status. Full code. PATIENT TIME: Greater than 60 minutes was spent doing history and physical, greater than half the time was in direct patient contact. [id number]/[facility] #: [id number] MTDD
[2017-12-19 07:25] LABS: ABS Basophils 0.1 10^3/ul (0-0.2); ABS Eosinophils 0 10^3/ul (0-0.6); ABS Lymphocytes 2.4 10^3/ul (1.0-4.8); ABS Monocytes 1.3 10^3/ul (0-0.8); ABS Neutrophils 10.3 10^3/ul (1.5-7.7); ABS Nucleated RBC 0 10^3/ul; Eosinophil % 0.1 % (0-6); Hematocrit 30 % (35-47); Hemoglobin 10.4 g/dl (12.0-16.0); Lymphocyte % 16.9 % (25-47); Mean Corpuscular HGB Conc 35 g/dl (31-36); Mean Corpuscular Hemoglobin 30 pg (27-31); Mean Corpuscular Volume 86 fL (80-97); Mean Platelet Volume 7.4 um3 (7.4-10.4); Nucleated Red Blood Cells % 0; Platelet Count 240 10^3/ul (150-450); Red Blood Count 3.53 10^6/ul (4.0-5.4); Red Cell Distribution Width 12 % (10.5-15); White Blood Count 14.1 10^3/ul (3.5-10.8)
[2017-12-19 07:50] LABS: EGFR Non-African American 131.3 (>60)
[2017-12-19] MEDS ORDERED: cefTRIAXone(*) 1 GM in NS 0.9% 50 ML* 50 ML IVPB SCH (08:30)
[2017-12-19] MEDS: KCL 10 MEQ/50 ML IVPREMIX* 10 MEQ/50 ML BAG IV SCH ×3 (11:06→13:46)
--- NOTE | 2017-12-19 11:28 | ED ---
Deloris Abel Thomas, scribed for Craig Nation MD on 12/18/17 at 1827 . HPI Febrile Illness - HPI Summary HPI Summary: The patient is a 37 year old female complaining of fever, chills, frontal headache, fatigue, and body aches that began two days ago. She has been treating her headache with ibuprofen, acetaminophen, and aspirin. Her temperature at triage is 103.1. She had nausea and vomiting yesterday, but none since. She had a pneumonia vaccine three days ago. She complains of pain to the site of the injection. - History of Current Complaint Chief Complaint: EDFever Time Seen by Provider: 12/18/17 17:21 Hx Obtained From: Patient Onset/Duration: Started Days Ago - 2, Still Present Timing: Constant Current Severity: Moderate Pain Intensity: 7 Pain Scale Used: 0-10 Numeric Aggravating Factors: Nothing Alleviating Factors: OTC Medicine Associated Signs and Symptoms: Other: - Fever, chills, frontal PRAJAPATI, nausea, vomiting, pain to site of injection - Allergy/Home Medications Allergies/Adverse Reactions: Allergies Allergy/AdvReac Type Severity Reaction Status Date / Time amoxicillin Allergy Mild Rash Verified 12/18/17 16:52 Home Medications: Home Medications Beclomethasone Dipropionate [Qnasl] 80 mcg NA DAILY 12/18/17 [History Confirmed 12/18/17] Cetirizine* [ZyrTEC 10 MG TAB*] 10 mg PO DAILY PRN 12/18/17 [History Confirmed 12/18/17] Desogestrel-Ethinyl Estradiol [Juleber 0.15-30 mg-Mcg] 1 tab PO DAILY 12/18/17 [ History Confirmed 12/18/17] Fexofenadine (NF) [Debra 180 (NF)] 180 mg PO DAILY PRN 12/18/17 [History Confirmed 12/18/17] PMH/Surg Hx/FS Hx/Imm Hx GI History: Reports: Hx Crohn's Disease Sensory History: Reports: Hx Contacts or Glasses - GLASSES Opthamlomology History: Reports: Hx Contacts or Glasses - GLASSES - Surgical History Surgery Procedure, Year, and Place: ILEOSTOMY Hx Anesthesia Reactions: No Infectious Disease History: No Infectious Disease History: Reports: Traveled Outside the [place] in Last 30 Days - [place] - Family History Known Family History: Negative: Seizure Disorder - Social History Alcohol Use: Occasionally Alcohol Amount: 1 drink weekly Substance Use Type: Reports: None Smoking Status (MU): Never Smoked Tobacco Have You Smoked in the Last Year: No Review of Systems Positive: Fever, Chills, Fatigue Positive: Vomiting, Nausea Positive: Myalgia Positive: Other - Pain to site of injection Positive: Headache All Other Systems Reviewed And Are Negative: Yes Physical Exam - Summary Physical Exam Summary: Appearance: The patient is well-nourished in no acute distress and in no acute pain. Skin: The skin is warm and dry and skin color reflects adequate perfusion. On the site of the injection, there is erythema, tenderness, and warmness to the touch. HEENT: The head is normocephalic and atraumatic. The pupils are equal and reactive. The conjunctivae are clear and without drainage. Nares are patent and without drainage. Mouth reveals moist mucous membranes and the throat is without erythema and exudate. The external ears are intact. The ear canals are patent and without drainage. The tympanic membranes are intact. Neck: the neck is supple with full range of motion and non-tender. There are no carotid bruits. There is no neck vein distension. Respiratory: Chest is non-tender. Lungs are clear to auscultation and breath sounds are symmetrical and equal. Cardiovascular: Heart is regular rate and rhythm. There is no murmur or rub auscultated. There is no peripheral edema and pulses are symmetrical and equal. Abdomen: The abdomen is soft and non-tender. There are normal bowel sounds heard in all four quadrants and there is no organomegaly palpated. Musculoskeletal: There is no back tenderness noted. Extremities are non-tender with full range of motion. There is good capillary refill. There is no peripheral edema or calf tenderness elicited. Neurological: Patient is alert and oriented to person, place and time. The patient has symmetrical motor strength in all four extremities. Cranial nerves are grossly intact. Deep tendon reflexes are symmetrical and equal in all four extremities. Psychiatric: The patient has an appropriate affect and does not exhibit any anxiety or depression. Triage Information Reviewed: Yes Vital Signs On Initial Exam: Initial Vitals Temp Pulse Resp BP Pulse Ox 103.1 F 121 20 130/75 97 12/18/17 16:48 12/18/17 16:48 12/18/17 16:48 12/18/17 16:48 12/18/17 16:48 Vital Signs Reviewed: Yes Procedures - Lumbar Puncture Position: Sitting Aseptic Technique: Lidocaine Anesthesia Used: 2.0% Lido Spinal Needle Used: 22 Gauge Lumbar Puncture Note: Unable to obtain CSF with initial attempts. The patient was re-anesthetized one segment higher and CSF was obtained fairly readily. She tolerated the procedure very well with no C/O. The fluid was grossly clear and came with normal flow. The fluid bobbi in the column to 24 cms which was the level of her head. So I judged the opening pressure as normal. Diagnostics - Vital Signs Vital Signs Temp Pulse Resp BP Pulse Ox 12/18/17 18:09 103.9 F 12/18/17 18:00 105 96 12/18/17 17:07 108 99 12/18/17 16:48 103.1 F 121 20 130/75 97 - Laboratory Lab Results: Lab Results 12/18/17 12/18/17 12/18/17 Range/Units 18:10 18:10 18:10 WBC 19.2 H (3.5-10.8) 10^3/ul RBC 4.24 (4.0-5.4) 10^6/ul Hgb 12.3 (12.0-16.0) g/dl Hct 37 (35-47) % MCV 86 (80-97) fL MCH 29 (27-31) pg MCHC 34 (31-36) g/dl RDW 12 (10.5-15) % Plt Count 269 (150-450) 10^3/ul MPV 7.6 (7.4-10.4) um3 Neut % (Auto) 85.9 H (38-83) % Lymph % (Auto) 7.5 L (25-47) % [place] % (Auto) 6.3 (0-7) % Eos % (Auto) 0 (0-6) % Baso % (Auto) 0.3 (0-2) % Absolute Neuts (auto) 16.5 H (1.5-7.7) 10^3/ul Absolute Lymphs (auto) 1.4 (1.0-4.8) 10^3/ul Absolute Monos (auto) 1.2 H (0-0.8) 10^3/ul Absolute Eos (auto) 0 (0-0.6) 10^3/ul Absolute Basos (auto) 0.1 (0-0.2) 10^3/ul Absolute Nucleated RBC 0 10^3/ul Nucleated RBC % 0.1 ESR 52 H (0-14) mm/Hr INR (Anticoag Therapy) 1.37 H (0.77-1.02) Sodium 126 L (139-145) mmol/L Potassium 3.3 L (3.5-5.0) mmol/L Chloride 95 L (101-111) mmol/L Carbon Dioxide 20 L (22-32) mmol/L Anion Gap 11 (2-11) mmol/L BUN 6 (6-24) mg/dL Creatinine 0.71 (0.51-0.95) mg/dL Est GFR ( Amer) 117.9 (>60) Est GFR (Non-Af Amer) 91.6 (>60) BUN/Creatinine Ratio 8.5 (8-20) Glucose 110 H (70-100) mg/dL Lactic Acid (0.5-2.0) mmol/L Calcium 8.8 (8.6-10.3) mg/dL Total Bilirubin 0.60 (0.2-1.0) mg/dL AST 15 (13-39) U/L ALT 9 (7-52) U/L Alkaline Phosphatase 52 (34-104) U/L Troponin I 0.00 (<0.04) ng/mL C-Reactive Protein 302.98 H (< 5.00) mg/L Total Protein 7.2 (6.4-8.9) g/dL Albumin 3.6 (3.2-5.2) g/dL Globulin 3.6 (2-4) g/dL Albumin/Globulin Ratio 1.0 (1-3) Beta HCG, Quant < 0.60 mIU/mL Urine Color Urine Appearance Urine pH (5-9) Ur Specific [place] (1.010-1.030) Urine Protein (Negative) Urine Ketones (Negative) Urine Blood (Negative) Urine Nitrate (Negative) Urine Bilirubin (Negative) Urine Urobilinogen (Negative) Ur Leukocyte Esterase (Negative) Urine WBC (Auto) (Absent) Urine RBC (Auto) (Absent) Ur Squamous Epith Cells (Absent) Urine Bacteria (Absent) Urine Glucose (Negative) 12/18/17 12/18/17 Range/Units 18:10 20:18 WBC (3.5-10.8) 10^3/ul RBC (4.0-5.4) 10^6/ul Hgb (12.0-16.0) g/dl Hct (35-47) % MCV (80-97) fL MCH (27-31) pg MCHC (31-36) g/dl RDW (10.5-15) % Plt Count (150-450) 10^3/ul MPV (7.4-10.4) um3 Neut % (Auto) (38-83) % Lymph % (Auto) (25-47) % [place] % (Auto) (0-7) % Eos % (Auto) (0-6) % Baso % (Auto) (0-2) % Absolute Neuts (auto) (1.5-7.7) 10^3/ul Absolute Lymphs (auto) (1.0-4.8) 10^3/ul Absolute Monos (auto) (0-0.8) 10^3/ul Absolute Eos (auto) (0-0.6) 10^3/ul Absolute Basos (auto) (0-0.2) 10^3/ul Absolute Nucleated RBC 10^3/ul Nucleated RBC % ESR (0-14) mm/Hr INR (Anticoag Therapy) (0.77-1.02) Sodium (139-145) mmol/L Potassium (3.5-5.0) mmol/L Chloride (101-111) mmol/L Carbon Dioxide (22-32) mmol/L Anion Gap (2-11) mmol/L BUN (6-24) mg/dL Creatinine (0.51-0.95) mg/dL Est GFR ( Amer) (>60) Est GFR (Non-Af Amer) (>60) BUN/Creatinine Ratio (8-20) Glucose (70-100) mg/dL Lactic Acid 0.8 (0.5-2.0) mmol/L Calcium (8.6-10.3) mg/dL Total Bilirubin (0.2-1.0) mg/dL AST (13-39) U/L ALT (7-52) U/L Alkaline Phosphatase (34-104) U/L Troponin I (<0.04) ng/mL C-Reactive Protein (< 5.00) mg/L Total Protein (6.4-8.9) g/dL Albumin (3.2-5.2) g/dL Globulin (2-4) g/dL Albumin/Globulin Ratio (1-3) Beta HCG, Quant mIU/mL Urine Color Straw Urine Appearance Clear Urine pH 6.0 (5-9) Ur Specific [place] 1.001 L (1.010-1.030) Urine Protein Negative (Negative) Urine Ketones Trace A (Negative) Urine Blood 3+ A (Negative) Urine Nitrate Negative (Negative) Urine Bilirubin Negative (Negative) Urine Urobilinogen Negative (Negative) Ur Leukocyte Esterase 3+ A (Negative) Urine WBC (Auto) 1+(6-10/hpf) A (Absent) Urine RBC (Auto) Trace(0-2/hpf) (Absent) Ur Squamous Epith Cells Present A (Absent) Urine Bacteria 1+ A (Absent) Urine Glucose Negative (Negative) Result Diagrams: 12/19/17 07:15 12/19/17 07:14 Lab Statement: Any lab studies that have been ordered have been reviewed, and results considered in the medical decision making process. - Radiology CXR Xray Interpretation: No Acute Changes - IMPRESSION: No etiology for fever evident. No evidence for acute intrathoracic disease. Dr. Nation has reviewed this report. Radiology Interpretation Completed By: Radiologist Course/Dx - Course Course Of Treatment: Ms. Moser presented meeting sepsis criteria. She did not look toxic but was febrile and tachycardic. She had no meningismus with negative kernig and brudzinski signs. She was very tender with surrounding erythema at the injection site on her left shoulder. She was given fluids and vancomycin while labs were obtained and the hospitalist service was consulted for admission. - Diagnoses Provider Diagnoses: Sepsis - Provider Notifications Discussed Care Of Patient With: Brady Gonzalez Time Discussed With Above Provider: 20:09 Instructed by Provider To: Admit As Inpatient - Critical Care Time Critical Care Time: 30-74 min Discharge - Sign-Out/Discharge Documenting (check all that apply): Discharge/Admit/Transfer - Discharge Plan Condition: Fair Disposition: ADMITTED TO [facility] - Billing Disposition and Condition Condition: FAIR Disposition: [facility] [place] The documentation as recorded by the Deloris reece Thomas accurately reflects the service I personally performed and the decisions made by Rios lopez Richard L, MD.
[2017-12-19 13:08] VITALS: BP 129/81
--- NOTE | 2017-12-19 18:43 | CONS ---
CONSULTATION REPORT: DATE OF CONSULT: 12/19/17 REQUESTING PROVIDER: Dr. Miller. CONSULTING SERVICE: Infectious Disease. REASON FOR CONSULT: Fever and headache. IMPRESSION: 1. Fever, headache, myalgia, erythematous rash, left arm. The differential diagnosis includes a viral infection, including influenza other viruses, less likely a bacterial infection, meningitis has been ruled out, she had a pneumococcal vaccine the day the symptoms started, so that is a consideration as a cause of allergic reaction, particularly given the erythematous rash over her left deltoid where she received the vaccine. She does not spend lot of time outdoors, seems less likely to be tickborne infection. She recently traveled to [place] but was not ill while there and no particular exposures or GI illness either. 2. Crohn's disease, on Remicade. 3. AMOXICILLIN allergy. RECOMMENDATIONS: Stop antibiotics since she feels much better this morning. Headaches nearly gone, no fevers overnight. I am going to stop the antibiotics and we will follow her symptoms roughly. HISTORY OF PRESENT ILLNESS: This is a 38-year-old woman with Crohn's, on rituximab. On Saturday evening, developed fever, headaches, some neck stiffness, diffuse myalgias, malaise, chills, and her appetite was off. She has had a pneumococcal vaccine that day and she noticed some pain at the injection site and little later, I think, Saturday started to get some redness over her anterior deltoid. Because of progressive fever, she came to the hospital yesterday, white count was 19,000. She got IV fluids. She got a dose of ceftriaxone. She had a lumbar puncture, which showed no white cells, no red cells, glucose 70, protein 25, C-reactive protein is 300, BCG 0. This morning, she feels much better. Her headache has gone. She has no neck stiffness. She has eaten breakfast. Her appetite is good. Energy is much better. Myalgias gone. Has never had anything like this happen in the past. She does still have a little bit of pain over her left deltoid with some anterior erythema, which is nontender, not warm that she can tell. No trouble moving her left shoulder. PAST MEDICAL HISTORY: 1. Crohn's disease, on rituximab. 2. Status post colectomy and ileostomy. 3. Seasonal allergies. 4. ALLERGIES to AMOXICILLIN, caused rash. MEDICATIONS: 1. Tylenol. 2. Docusate. 3. Zofran. 4. Ceftriaxone. FAMILY HISTORY: No recurrent infections. Parents are both alive and healthy. SOCIAL HISTORY: She lives in [place]. She teaches at [employer], recent work trip to [facility] at the end of November for about a week. She felt fine while she was there and after she got back. No pets at home. No sick contacts. REVIEW OF SYSTEMS: A 14-point review of systems all negative except as noted above. PHYSICAL EXAM: Vital Signs: Temperature is 36, heart rate 90, respiratory rate 16, blood pressure 130/90, oxygen saturation 100% on room air. General: She is awake, and not in distress. Neurologic: She is oriented x3. Follows all commands. HEENT: There is no conjunctival hemorrhage. Oropharynx without lesions. Neck: Neck is supple without mass. Lymph Nodes: There is no cervical , supraclavicular, inguinal, axillary, or epitrochlear lymphadenopathy. Heart: Regular rate and rhythm without murmurs, rubs or gallops. Lungs: Clear to auscultation bilaterally. Abdomen: Soft, nontender, nondistended. There are bowel sounds present. There is an ostomy bag with air and liquid stool. Skin: Anterior left deltoid, there are faint, multiple erythematous plaques, which are blanching, nontender, not warm, not painful. There is no other rash. DIAGNOSTIC STUDIES/LAB DATA: White blood cell count 14, hemoglobin 10, platelets 240. Creatinine 0.5. Urinalysis showed blood and leukocyte esterase. Culture is pending. Please see the impressions and recommendations outlined above. Thank you for asking me to see Ms. Moser in consultation. [id number]/[facility] #: [id number] ALEJANDRA
--- NOTE | 2017-12-20 07:47 | DS ---
CC: Dr. Arredondo * DISCHARGE SUMMARY: DATE OF ADMISSION: 12/18/17 DATE OF DISCHARGE: 12/19/17 PRIMARY CARE PROVIDER: Dr. Arredondo. DISCHARGE DIAGNOSIS: Fever, headache, secondary to vaccine reaction. SECONDARY DIAGNOSES: 1. Seasonal allergies. 2. Crohn's disease, status post ileostomy, on regular Remicade infusions every 8 weeks. MEDICATION LIST: 1. Acetaminophen 650 mg p.o. q.4 hours p.r.n. pain or fever. 2. Beclomethasone dipropionate 80 mcg nasal daily. 3. Cetirizine 10 mg p.o. daily as needed for allergies. 4. Desogestrel and ethinyl estradiol 1 tablet p.o. daily. 5. Fexofenadine 180 mg p.o. daily as needed for allergy symptoms. 6. Remicade 300 mg IV every 8 weeks. HOSPITAL COURSE: Ms. Moser is a 37-year-old lady with a past medical history as stated above that presented to the emergency room with complaints of fever and headache. On 12/16/17, the patient received Pneumovax vaccine and that evening she developed fever, chills and a frontal headache. She continued to have intermittent fevers for the past 3 days as high as 104. For more details about her presentation, I refer you to her history and physical. As the patient had complained of neck stiffness, there was also concern for possible meningitis. Her workup in the emergency room included a CBC that showed a WBC of 19.2 with 85% neutrophils. A sed rate of 52, a CRP of 302. Chest x-ray showed no evidence for acute intrathoracic disease. The patient was admitted for further evaluation. She had an LP performed in the emergency room and her CSF showed no cells. Her urinalysis was abnormal but her urine culture grew only normal autumn. There was no evident source of infection. She was also seen in consultation by Infectious Disease (Dr. Obregon) and his impression was the patient's seizure was likely secondary to her reaction to vaccination and no antibiotics were recommended. The patient was already feeling improved. She had no further fever after admission and she felt well enough for discharge. PHYSICAL EXAMINATION: Vital Signs: Temperature 98.3, heart rate is 73, respiratory rate is 15, oxygen saturation 99% on room air, blood pressure is 129 /81. General: Patient is a pleasant young lady, lying in bed, in no acute distress. CVS: Normal S1, S2 regular rate and rhythm. Chest: Breath sounds bilaterally with no added sounds. Abdomen is soft, nontender with working ostomy. Extremities: The patient has patchy erythema to her left deltoid area but no fluctuation, no significant tenderness or itching in the area. It should be patchy erythema, edema, and warmth. Neuro: She is alert and oriented x3. She moves all 4 extremities. DIET: Regular diet. ACTIVITIES: As tolerated. DISPOSITION: To home. STATUS WHILE IN THE HOSPITAL: Observation. Please keep in mind this is a summarized version of this patient's hospital stay. If you need more information, please feel free to call me at [phone] or please obtain the full medical records. TIME SPENT: Approximately 40 minutes were spent to complete this discharge. [id number]/[facility] #: [id number] MTDD
== END 2017-12-19 15:30 | disposition home or self-care (01) | DRG 864 ==
LOC: ED 16:44 → MED 20:44
PROVIDERS: ADMIT Pediatrics; ATTEND Internal Medicine
PROC: 009U3ZX Drainage of Spinal Canal, Percutaneous Approach, Diagnostic (ICD-10-PCS; principal; 2017-12-18)
DX: R50.83 Postvaccination fever (principal); N39.0 Urinary tract infection, site not specified; K50.90 Crohn's disease, unspecified, without complications; L27.0 Generalized skin eruption due to drugs and medicaments taken internally; G44.40 Drug-induced headache, not elsewhere classified, not intractable; M43.6 Torticollis; J30.2 Other seasonal allergic rhinitis; T50.Z95A Adverse effect of other vaccines and biological substances, initial encounter; Z88.0 Allergy status to penicillin; Z93.2 Ileostomy status; Y92.009 Unspecified place in unspecified non-institutional (private) residence as the place of occurrence of the external cause; Z72.89 Other problems related to lifestyle; Z90.49 Acquired absence of other specified parts of digestive tract
CPT/HCPCS: 36415; 71045; 80048; 80053; 81003; 81015; 82945; 83605; 83735; 84157; 84484; 84702; 85025; 85610; 85652; 86140; 87040; 87070; 87077; 87086; 87186; 87205; 89051; 99284; A9270-GY; J0696; J1885; J3370; J3480